=== PATIENT | female | born 1955 | race Caucasian/White ===

== ENCOUNTER 2019-12-15 02:46 | Emergency (ER) | payer OTHER, SELFPAY ==
[2019-12-15 02:56] VITALS: BP 140/82; PULSE 76; RESP 18; TEMP 36.6; O2SAT 100
--- NOTE | 2019-12-15 03:01 | ED_ITS ---
HPI - Fall General Chief Complaint: Fall Stated Complaint: fainted/fell and hit head Time Seen by Provider: 12/15/19 02:47 Source: patient Mode of arrival: Ambulatory Limitations: no limitations History of Present Illness HPI Narrative: Patient is a 64-year-old female. Not on anticoagulation. States she normally takes trazodone at night to sleep. She took trazodone last evening. She states that she received a phone call in the middle the night. States she jumped update answered. It ended up being a neonatal nurse practitioner however she stated that she was anxious to answer the phone because the family is expecting a grandchild to be more in. States that when she stood up she became lightheaded and fell. Landing on her left side. Did not hit her head. Did scrape her knee in hit the left side of her chest. Her then helped her up. She went to the bathroom and upon walking back she fell again this time hitting her forehead on the bed. She did sustain a cut to her forehead. A bandage was placed over the cut. Ambulated in the emergency department for evaluation. Related Data Allergies Allergy/AdvReac Type Severity Reaction Status Date / Time Penicillins Allergy Verified 12/15/19 03:33 Review of Systems Constitutional Constitutional: Denies fatigue, Denies fever(s), Denies frequent falls and Denies headache(s) Eyes Eyes: Denies change in vision and Denies loss of vision ENT Ears, Nose, Mouth, and Throat: Denies vertigo, Reports dizziness, Denies headache(s) and Reports disequilibrium Cardiovascular Cardiovascular: Denies chest pain, Denies edema, Denies palpitations and Denies dyspnea Respiratory Respiratory: Denies cough and Denies dyspnea Gastrointestinal Gastrointestinal: Denies abdominal pain, Denies nausea and Denies vomiting Musculoskeletal Musculoskeletal: Denies myalgias and Denies arthralgias Integumentary/Breasts Comments: Cut to forehead Neurologic Neurologic: Denies abnormal movements, Denies abnormal speech, Denies behavioral changes, Denies confusion, Denies vertigo, Reports dizziness, Denies frequent falls, Denies headache(s), Denies loss of vision and Reports disequilibrium Psychiatric Psychiatric: Denies behavioral changes and Denies confusion Endocrine Endocrine: Denies fatigue and Denies palpitations Hematologic/Lymphatic Hematologic/Lymphatic: Denies easy bleeding and Denies easy bruising Patient History Surgical History No pertinent past surgical history (Acute) Social History Smoking Status: Never smoker Smoking Status: Never smoker Substance Use Type: does not use Exam Initial Vital Signs Initial Vital Signs: Vital Signs Temperature 98 F 12/15/19 02:56 Pulse Rate 76 12/15/19 02:56 Respiratory Rate 18 12/15/19 02:56 Blood Pressure 140/82 12/15/19 02:56 Pulse Oximetry 100 12/15/19 02:56 Const General: cooperative, comfortable, well developed and well groomed Limitations: mental status not altered HENMT Head: laceration Chest Chest: No crepitus and tenderness (Left-sided chest wall) Resp Effort & Inspection: normal respiratory effort Auscultation: clear to auscultation bilaterally Cardio Rate: regular rate Rhythm: regular rhythm Back/Spine/Pelvis Cervical Spine: No cervical spinal tenderness Thoracic/Lumbar Spine: No thoracic spinal tenderness Skin Other: Superficial abrasion left knee Neuro General: alert, awake and oriented x3 Cognition: normal cognition Speech: speech normal Gait: normal gait Sensory Exam: no sensory deficits noted Extrem General: normal to inspection and capillary refill normal Psych Appearance: grossly normal and well kempt Procedures Laceration Repair Laceration 1: Site: scalp Size (cm): 4 Description: linear Depth: simple, single layer Local Anesthetic: lidocaine 1% and with epi Amount of anesthesia used (mL): 4 Pre-repair: wound explored Skin layer closed with: other (Chromic) Size (cm): 5-0 Number of sutures: 7 Technique: simple, interrupted Subcutaneous layer closed with: chromic gut Size: 5-0 Number of sutures: 2 Technique: simple, interrupted Course Orders Ordered: Discontinued Medications Bacitracin (Bacitracin) 1 applic TOP NOW ONE Stop: 12/15/19 03:34 Lidocaine/Epinephrine (Xylocaine 1% W/Epi) 1 ml SUBCUT NOW ONE Stop: 12/15/19 03:03 Last Admin: 12/15/19 03:12 Dose: 1 ml Documented by: LUIS Vital Signs Vital signs: Vital Signs - 8 hr 12/15/19 02:56 Temperature 98 F Pulse Rate 76 Respiratory Rate 18 Blood Pressure 140/82 Pulse Oximetry 100 MDM - Fall MDM Narrative Medical decision making narrative: Abrasion to left knee need in the intervention. Has full range of motion to the left knee and is ambulatory. She does have tenderness to palpation of left-sided chest wall. No crepitus. Does not have a specific rib where she is tender. Lungs are clear. Low suspicion for rib fracture. Will hold on x-rays. Does have a 4 cm laceration to the for ehead. Two deep stitches were placed. There are no underlying fractures felt or seen. No cervical spine tenderness. Will hold on radiologic studies for now. I do suspect that her syncopal episodes were related the fact that she took trazodone last evening, woke up suddenly and stood up out of bed. Most likely vasovagal. Low suspicion for CVA. She had no chest pain or palpitations prior to the fall. Will hold on further workup for now. Patient was given care instructions with regard to the lacerations. She was given return precautions. She expressed understanding and agreement. Discharge Plan Departure Patient Disposition: Home Clinical Impression: Abrasion of skin Forehead laceration Qualifiers: Encounter type: initial encounter Qualified Code(s): S01.81XA - Laceration without foreign body of other part of head, initial encounter Syncope Qualifiers: Syncope type: unspecified Qualified Code(s): R55 - Syncope and collapse Contusion of left chest wall Qualifiers: Encounter type: initial encounter Qualified Code(s): S20.212A - Contusion of left front wall of thorax, initial encounter Discharge Date/Time: 12/15/19 03:48 Instructions: DI for Laceration Repair -- Simple Activity Restrictions/Additional Instructions: The stitches are absorbable and should come out on the road however if they are still in place in 7-10 days the should be removed. After 24 hours you can shower like normal. Be careful with combing your hair. You can cover it with a bandage as needed. Contact your primary provider for follow-up. Return to the emergency department for any new or worsening symptoms Referrals: Marshall Archuleta MD [Primary Care Provider] -
[2019-12-15] MEDS: LIDOCAINE 1% W/EPI 1 ML SUBCUT (03:12)
[2019-12-15 03:47] VITALS: BP 126/74; PULSE 80; RESP 18; O2SAT 97
== END 2019-12-15 03:48 | disposition home or self-care (01) ==
PROVIDERS: Emergency Provider Emergency Medicine; PCP Family Medicine
DX: S01.81XA Laceration without foreign body of other part of head, initial encounter (principal); S80.212A Abrasion, left knee, initial encounter; S20.212A Contusion of left front wall of thorax, initial encounter; R55 Syncope and collapse
CPT/HCPCS: 12002; 99281; 99283

== ENCOUNTER 2023-10-23 18:59 | Emergency (ER) | payer MEDICARE, OTHER, SELFPAY ==
[2023-10-23 19:04] VITALS: BP 127/61; PULSE 72; RESP 18; TEMP 36.8; O2SAT 98; BMI 23.0
[2023-10-23 19:17] VITALS: PULSE 74; RESP 20; O2SAT 98
[2023-10-23 19:30] VITALS: BP 120/59; PULSE 72; RESP 20; O2SAT 97
--- NOTE | 2023-10-23 19:32 | ED_ITS ---
HPI - Fall General Chief Complaint: Trauma Stated Complaint: above lt eye inj/lac Time Seen by Provider: 10/23/23 19:30 Source: patient Mode of arrival: Ambulatory Limitations: no limitations History of Present Illness HPI Narrative: 68-year-old female on Eliquis with history of atrial fibrillation has had prior ablation. Patient states today she tripped head on a concrete statue which caused a cut above her eye. She states she will has a headache if she bends over. She denies any loss of consciousness. She denies any new neck or back pain. Denies any new numbness tingling or weakness. Patient states no chest pain or shortness of breath. She denies any dizziness. No nausea or vomiting. No loss of bowel or bladder control. Patient states her atrial fibrillation was treated with an ablation she was found not to be in AFib anymore but still takes Eliquis, so dad alive, diltiazem. Patient states history of allergy to penicillin. Denies any tobacco, does drink alcohol had 2 drinks after she fell at dinner this evening, states she did not have any before. She states she fell and hit her head around 1600. She is accompanied by her . She is unsure of her tetanus has been updated in the last 5 years. Related Data Allergies Allergy/AdvReac Type Severity Reaction Status Date / Time Penicillins Allergy Verified 10/23/23 19:10 Review of Systems Review of Systems ROS Unobtainable: All systems reviewed & are unremarkable except as noted in HPI and below Patient History Surgical History No pertinent past surgical history Social History Smoking Status: Never smoker Smoking Status: Never smoker Substance Use Type: does not use Exam Narrative Exam Narrative: GEN: Patient appears in mild distress. HEAD: Patient has a small laceration above the left brow proximally a cm in size somewhat stellate, no raccoon/Carlton sign. NECK: Nontender, painless range of motion, trachea midline Negative Nexus criteria, there is no midline line tenderness, distracting injury, altered mental status, neuro deficit, positive for recent EtOH. EYES: PERRLA, EOMI ENT: External inspection normal other than noted above, trachea is midline, TM's are normal no hemotypanum, Nares are clear, no septal hematoma, no dental or oral injury, airway is normal and with normal occlusion, No bony tenderness RESP: Chest is nontender and has symmetric movement, no ecchymosis, breath sounds are normal no crackles, wheezes or rales CVS: Heart sounds are normal, no murmur noted, No JVD. ABG/GI: Nontender, soft, normal bowel sounds, no distention, no organomegaly, pelvic rock is negative NEURO: Oriented AOx3, neuro is grossly intact, sensation and motor is normal all 4 extremities moving, cranial nerves II through XII are intact, GCS is 15 PSYCH: Normal mood and affect SKIN: Patient has some abrasions on the dorsum of her left hand, warm and dry, no crepitus and without decubitus BACK: No CVA tenderness, no vertebral tenderness, no step-off's, no crepitus EXT: Atraumatic, hips are nontender, no pedal edema, normal color and temperature, normal range of motion of extremities with normal tendon exam, 2+ pulses in all four extremities Initial Vital Signs Initial Vital Signs: Vital Signs Temperature 98.3 F 10/23/23 19:04 Pulse Rate 72 10/23/23 19:04 Respiratory Rate 18 10/23/23 19:04 Blood Pressure 127/61 10/23/23 19:04 Pulse Oximetry 98 10/23/23 19:04 Oxygen Delivery Method Room Air 10/23/23 19:04 Procedures Laceration Repair Laceration 1: Site: face Side (If applicable): left Size (cm): 1 Description: stellate and irregular Depth: simple, single layer Local Anesthetic: lidocaine 2% Amount of anesthesia used (mL): 3 Pre-repair: wound explored, irrigated extensively and deep structures intact Skin layer closed with: vicryl Skin layer suture size: 5-0 Number of sutures: 5 Technique: simple, interrupted Scores GCS [place] coma scale eye opening: Spontaneous [place] coma scale verbal response: Orientated [place] coma scale motor response: Obey commands [place] coma scale total score: 15 Nexus Score for C-Spine Focal Neurologic deficit present: No Midline spinal tenderness present: No Altered level of conciousness present: No Intoxication present: Yes Distracting Injury Present: No Nexus Criteria for C-spine: 1 Course Orders Ordered: ED Orders 10/23/23 19:41 CT head/brain wo con Stat 10/23/23 19:58 CT cervical spine wo con Stat Discontinued Medications Diphtheria/Tetanus/Acell Pertussis (Tet,Diph,Pertuss(Acell),Vac/Pf 0.5 Ml Syringe) 0.5 ml IM .ONCE ONE Stop: 10/23/23 19:42 Last Admin: 10/23/23 20:03 Dose: 0.5 ml Documented By: SB Vital Signs Vital signs: Vital Signs - 8 hr 10/23/23 19:04 10/23/23 19:17 10/23/23 19:30 Temperature 98.3 F Pulse Rate 72 74 72 Respiratory Rate 18 20 20 Blood Pressure 127/61 Pulse Oximetry 98 98 97 Oxygen Delivery Method Room Air 10/23/23 19:30 10/23/23 20:00 10/23/23 20:00 Temperature Pulse Rate 72 Respiratory Rate 22 Blood Pressure 120/59 L 125/72 Pulse Oximetry 96 Oxygen Delivery Method 10/23/23 20:30 Temperature Pulse Rate 71 Respiratory Rate 20 Blood Pressure Pulse Oximetry 96 Oxygen Delivery Method MDM - Fall Imaging Data CT scan - head: Radiologist's Impression: Sharonda Antoine??68??F??1955 ? Allergy/Adv: Penicillins Close Cervical Spine CT (Signed) Glynn Sanchezginny - 10/23/[address] (Signed) Laura,Gabe - 10/23/23 Launch?[place] [address] CT Scan Report Signed Patient: Sharonda Antoine MR#: [id number] : 1955 Acct:[id number] Age/Sex: 68 / F Date of Service: 10/23/23 Loc: ED Accession Number: [id number] Procedure: CT head/brain wo con Ordering Provider: Rima Landeros D.O. PROCEDURE: CT HEAD/BRAIN WO CON INDICATIONS: fall, hit head, lac above eye on eliquis TECHNIQUE: Noncontrast 4.5 mm thick angled axial sections acquired from the foramen magnum to the vertex, with coronal and sagittal reformats. For radiation dose reduction, the following was used: automated exposure control, adjustment of mA and/or kV according to patient size. COMPARISON: None. FINDINGS: Image quality: Diagnostic. CSF spaces: Basal cisterns are patent. No extra-axial fluid collections. The ventricles are symmetric in size and shape. Brain: No intracranial bleeds or masses. There is cerebral volume loss for age, with resultant ventricular and sulcal prominence. There are periventricular and deep white matter chronic small vessel ischemic changes. There is intracranial internal carotid artery atherosclerosis. Skull and face: Calvarium and visualized facial bones appear intact, without suspicious lesions. Sinuses: Visualized sinuses and mastoids are clear. IMPRESSION: No acute intracranial pathology. Dictated by: Gabe Sanchez M.D. on 10/23/2023 at 20:08 Approved by: Gabe Sanchez M.D. on 10/23/2023 at 20:09 CT - cervical spine: Radiologist's Impression: Close Cervical Spine CT (Signed) Gabe Sanchez - 10/23/[address] (Signed) Gabe Sanchez - 10/23/23 Launch?[place] [address] CT Scan Report Signed Patient: Sharonda Antoine MR#: [id number] : 1955 Acct:[id number] Age/Sex: 68 / F Date of Service: 10/23/23 Loc: ED Accession Number: [id number] Procedure: CT cervical spine wo con Ordering Provider: Rima Landeros D.O. PROCEDURE: CT CERVICAL SPINE WO CON INDICATIONS: fall, hit head, lac above eye on eliquis TECHNIQUE: Noncontrast 3 mm thick sections acquired from the skull base to the T4 level. Sagittal and coronal reformats were then constructed. For radiation dose reduction, the following was used: automated exposure control, adjustment of mA and/or kV according to patient size. COMPARISON: [facility], CR, XR CERVICAL SPINE WITH FLEXION EXTENSION, 03/30/2023, 11:03. FINDINGS: Image quality: Excellent. Bones: No fractures or dislocations. Loss of cervical lordosis. There is grade 1 anterolisthesis of C3 on C4. Moderate degenerative disc disease at C3-C4, C4- C5, C5-C6 and C6-C7. Severe degenerative disc disease in upper thoracic spine. Bilateral facet arthropathy, most pronounced at C2-C3 on the right and C3-C4 on the left. Visualized superior ribs are intact. Soft tissues: Prevertebral soft tissues are normal in thickness. No paravertebral hematomas. No apical pneumothoraces. IMPRESSION: 1. No displaced fracture or traumatic subluxation. 2. Degenerative changes in cervical spine and upper thoracic spine. Dictated by: Gabe Sanchez M.D. on 10/23/2023 at 20:09 Approved by: Gabe Sanchez M.D. on 10/23/2023 at 20:11 [facility] Narrative Medical decision making narrative: 60-year-old female with injury from fall hitting her head on a concrete statue. Has a small laceration over the left eye. Patient is anticoagulant Eliquis did have alcohol she states after the fall. Plan for head CT and C-spine. Head CT and C-spine are negative. Patient has a stellate laceration over the left eye was repaired with 5 Vicryl sutures. The reviewed wound care directions, return precautions. Patient has ambulated without issue in the department. She states she has a mild headache but defers anything here. Discharge Plan Departure Patient Disposition: Home Clinical Impression: Forehead laceration, Fall, Head injury Instructions: Closed Head Injury Activity Restrictions/Additional Instructions: Your sutures are absorbable, they should dissolve in the next 5-7 days. Wound Care: Keep wound(s) clean and dry. Wash daily with soap and water only. Do not use over the counter products (alcohol or peroxide)on the wounds unless instructed by a physician. If wound condition worsens (increased/expanding redness, developing fluid blisters, or worsening pain), either contact your doctor for an urgent re- assessment , or return to the Emergency Department. Return to the Emergency Department for any new or worsening symptoms. Return if fever greater than 100.4 Fahrenheit, increased swelling, increasing pain or worsening symptoms such as increased discharge or spreading redness, severe headaches, dizziness, vomiting, new neck or back pain, new numbness, tingling or weakness, loss of bowel or bladder control or other new or concerning changes. Referrals: Marshall Archuleta MD [Primary Care Provider] - Stand Alone Forms: Patient Portal/API
--- NOTE | 2023-10-23 19:41 | DI.CT.S_ITS ---
PROCEDURE: CT HEAD/BRAIN WO CON INDICATIONS: fall, hit head, lac above eye on eliquis TECHNIQUE: Noncontrast 4.5 mm thick angled axial sections acquired from the foramen magnum to the vertex, with coronal and sagittal reformats. For radiation dose reduction, the following was used: automated exposure control, adjustment of mA and/or kV according to patient size. COMPARISON: None. FINDINGS: Image quality: Diagnostic. CSF spaces: Basal cisterns are patent. No extra-axial fluid collections. The ventricles are symmetric in size and shape. Brain: No intracranial bleeds or masses. There is cerebral volume loss for age, with resultant ventricular and sulcal prominence. There are periventricular and deep white matter chronic small vessel ischemic changes. There is intracranial internal carotid artery atherosclerosis. Skull and face: Calvarium and visualized facial bones appear intact, without suspicious lesions. Sinuses: Visualized sinuses and mastoids are clear. IMPRESSION: No acute intracranial pathology. Dictated by: Gabe Sanchez M.D. on 10/23/2023 at 20:08 Approved by: Gabe Sanchez M.D. on 10/23/2023 at 20:09
--- NOTE | 2023-10-23 19:58 | DI.CT.S_ITS ---
PROCEDURE: CT CERVICAL SPINE WO CON INDICATIONS: fall, hit head, lac above eye on eliquis TECHNIQUE: Noncontrast 3 mm thick sections acquired from the skull base to the T4 level. Sagittal and coronal reformats were then constructed. For radiation dose reduction, the following was used: automated exposure control, adjustment of mA and/or kV according to patient size. COMPARISON: [facility], CR, XR CERVICAL SPINE WITH FLEXION EXTENSION, 03/30/2023, 11:03. FINDINGS: Image quality: Excellent. Bones: No fractures or dislocations. Loss of cervical lordosis. There is grade 1 anterolisthesis of C3 on C4. Moderate degenerative disc disease at C3-C4, C4-C5, C5-C6 and C6-C7. Severe degenerative disc disease in upper thoracic spine. Bilateral facet arthropathy, most pronounced at C2-C3 on the right and C3-C4 on the left. Visualized superior ribs are intact. Soft tissues: Prevertebral soft tissues are normal in thickness. No paravertebral hematomas. No apical pneumothoraces. IMPRESSION: 1. No displaced fracture or traumatic subluxation. 2. Degenerative changes in cervical spine and upper thoracic spine. Dictated by: aGbe Sanchez M.D. on 10/23/2023 at 20:09 Approved by: Gabe Sanchez M.D. on 10/23/2023 at 20:11
[2023-10-23 20:00] VITALS: BP 125/72; PULSE 72; RESP 22; O2SAT 96
[2023-10-23] MEDS: TET,DIPH,PERTUSS(ACELL),VAC/PF 0.5 ML SYRINGE IM (20:03)
[2023-10-23 20:30] VITALS: PULSE 71; RESP 20; O2SAT 96
== END 2023-10-23 20:56 | disposition home or self-care (01) ==
PROVIDERS: Emergency Provider Emergency Medicine; PCP Family Medicine
DX: S01.81XA Laceration without foreign body of other part of head, initial encounter (principal); S09.90XA Unspecified injury of head, initial encounter; W01.0XXA Fall on same level from slipping, tripping and stumbling without subsequent striking against object, initial encounter; Z79.01 Long term (current) use of anticoagulants; Z23 Encounter for immunization
CPT/HCPCS: 12011; 70450; 72125; 90471; 99284; 90715